=== PATIENT | male | born 1975 | race Caucasian/White ===

== ENCOUNTER 2019-03-10 16:08 | Emergency (ER) | payer BC ==
[~2019-03-10] VITALS: Ht 177.8 cm; Wt 100.2 kg
[~2019-03-10 16:08] MED LIST: ALLOPURINOL 10100 M3 PO; IBUPROFEN 800800 MG PO; NORCO 5-325 TA1 EACH PO; PERCOCET 5-3251 EACH PO
[2019-03-10] MEDS ORDERED: NORCO 5-325 TA1 EACH PO (17:21)
[2019-03-10] MEDS ORDERED: ACETAMINOPHEN-1 EAC1 PO (17:51)
[2019-03-10] MEDS ORDERED: NAPROSYN500 MG PO (17:51)
[2019-03-10 18:12] VITALS: BP 137/91
== END 2019-03-10 18:13 | disposition home or self-care (01) ==
LOC: M.ERS 16:08
DX: M25.532 Pain in left wrist (principal); F17.200 Nicotine dependence, unspecified, uncomplicated; M10.9 Gout, unspecified; I10 Essential (primary) hypertension; E78.5 Hyperlipidemia, unspecified; M19.90 Unspecified osteoarthritis, unspecified site